=== PATIENT | female | born 1965 | race Caucasian/White ===

== ENCOUNTER 2016-04-19 00:43 | Emergency (ER) | payer MEDICARE, OTHER ==
[~2016-04-19] VITALS: Ht 160 cm; Wt 52.0 kg
[~2016-04-19 00:43] MED LIST: BACL20TA PO; DIAZ5 PO; DILAUDID PAIN PUMP; DOCU1CAP39 PO; FIORIC PO; LOVE30IN SC; PRED1TAB PO; RANI150 PO; SERT-129 PO; VESI10TA4 PO; [UNRECOGNIZED DRUG - CODE] PO
[2016-04-19 00:48] VITALS: BP 130/63; PULSE 83; RESP 18; TEMP 98.2; O2SAT 97
[2016-04-19] MEDS ORDERED: BUME2TAB PO (01:15)
[2016-04-19] MEDS ORDERED: FLUC100T2 PO (01:15)
[2016-04-19] MEDS ORDERED: PROT40TA PO (01:15)
[2016-04-19] MEDS ORDERED: OXYC-432 PO (01:15)
[2016-04-19] MEDS ORDERED: SYMB80AE INH (01:15)
[2016-04-19] MEDS ORDERED: DIAZ5TAB PO (01:15)
[2016-04-19] MEDS ORDERED: TRAZ50TA12 PO (01:15)
[2016-04-19] MEDS ORDERED: NYST0.1P (01:15)
[2016-04-19] MEDS ORDERED: ALEN1TAB48 PO (01:15)
[2016-04-19] MEDS ORDERED: MILKSUS PO (01:15)
[2016-04-19] MEDS ORDERED: BACL20TA PO (01:15)
[2016-04-19] MEDS ORDERED: SERT-129 PO (01:15)
[2016-04-19] MEDS ORDERED: PRED20 PO (01:15)
[2016-04-19] MEDS ORDERED: METH2.5T PO (01:15)
[2016-04-19] MEDS ORDERED: FIORINAL2 PO (01:15)
[2016-04-19] MEDS ORDERED: IPRAAER INH (01:15)
[2016-04-19] MEDS ORDERED: LORA-373 PO (01:15)
[2016-04-19] MEDS ORDERED: BISA1TAB2 PO (01:15)
[2016-04-19] MEDS ORDERED: HYDR2TAB PO (01:15)
[2016-04-19] MEDS ORDERED: NICO21DI2 T-DERMAL (01:15)
[2016-04-19] MEDS ORDERED: LEVO500T3 PO (01:15)
[2016-04-19] MEDS ORDERED: SULFPOW PO (01:15)
[2016-04-19] MEDS ORDERED: VESI5TAB PO (01:15)
[2016-04-19] MEDS ORDERED: FURO20TA PO (01:15)
[2016-04-19] MEDS ORDERED: [UNRECOGNIZED DRUG - OTHER] PO (01:15)
[2016-04-19] MEDS ORDERED: LIDOCAINE HCL 1% PF 30 ML VIAL INFIL ONE (01:30)
--- NOTE | 2016-04-19 02:16 | PD ---
HPI Chief Complaint: Laceration/Skin Injury Time Seen by Provider: 01:07 Travel History International Travel<30 days: No Contact w/Intl Traveler<30days: No Traveled to known affect area: No History of Present Illness HPI This is a 51-year-old female who presents to the emergency department having hit the side of her left leg on a metal pole. Pt. sustained a laceration to her left leg. Pain is moderate, constant, with no numbness or weakness. Pt. has no other injuries. PFSH Past Medical History Anemia: Yes (W BLOOD TRANSFUSION) Arthritis: Yes ( RA, OSTEOARTHRITIS, SCOLIOSIS) Depression: Yes COPD: Yes Diminished Hearing: No GERD: Yes Musculoskeletal: Yes (OSTEOMYELITIS, HX MRSA) Tetanus Vaccination: < 5 Years ?: Not Menopausal: Yes Tubal Ligation: Yes (1987) Past Surgical History Joint Replacement: Yes (BILATERAL HIP REPLACEMENT 1999, BILATERAL REDO 2003) Thoracic Surgery: Yes (C3,C4, C5, C6 FUSED 2003) Social History Alcohol Use: No Tobacco Use: Yes (OCCAS) Substance Use: Yes (MARIJUANA OCCAS) Allergies-Medications (Allergen,Severity, Reaction): Coded Allergies: Amoxicillin (Verified Allergy, Mild, 04/19/16) Morphine (Verified Adverse Reaction, Severe, 04/19/16) Reported Meds & Prescriptions Reported Meds & Active Scripts Active Reported Oxycodone-Acetaminophen 5-325 mg Tab 1 Tab PO Q6H PRN Lorazepam 0.5 Mg Tab 0.5 Mg PO Q6H PRN Fluconazole 100 Mg Tab 100 Mg PO DAILY Alendronate (Alendronate Sodium) 70 Mg Tab 70 Mg PO THURS Sertraline (Sertraline HCl) 100 Mg Tab 200 Mg PO DAILY Baclofen 20 Mg Tab 20 Mg PO TID Trazodone (Trazodone HCl) 50 Mg Tab 50 Mg PO QHS Fiorinal (Butalbital/Aspirin/Caffeine) 50-325-40 Mg Cap 1 Cap PO Q4H PRN Do not exceed 6 capsules/day. Bumetanide 2 Mg Tab 2 Mg PO DAILY [saccharaomy] 250 PO BID Hydromorphone (Hydromorphone HCl) 2 Mg Tab 2 Mg PO Q4H PRN Nyata (Nystatin (Topical)) 100,000 Unit/Gm Pow 100,000 Gm Vesicare (Solifenacin) 5 Mg Tab 5 Mg PO BID Eq Gentle Laxative (Bisacodyl) 5 Mg Tab 10 Mg PO CONSTIPATION Nicotine Patch (Nicotine) 21 Mg/24 Hr Patch 21 Mg T-DERMAL DAILY Combivent Respimat Inh (Ipratropium-Albuterol Inh) 20-100 Correction/Act Aero 1 Puff INH QID Methotrexate 2.5 Mg Tab 2.5 Mg PO WED PRN Levofloxacin 500 Mg Tab 500 Mg PO DAILY Protonix (Pantoprazole Sodium) 40 Mg Tab 40 Mg PO DAILY Sulfasalazine 1 Pow Pow 1 Tab PO DAILY Furosemide 20 Mg Tab 20 Mg PO DAILY Symbicort Inh (Budesonide/Formoterol Fumarate) 80-4.5 Mcg/Act Aero 2 Puff INH Q12HR Milk of Magnesia Liq (Magnesium Hydroxide) 400 Mg/5 Ml Susp 30 Ml PO DAILY PRN Diazepam 5 Mg Tab 5 Mg PO TID PRN Prednisone 20 Mg Tab 20 Mg PO BID Physical Exam Narrative GENERAL: Well-nourished, well-developed patient. SKIN: 6 cm curvilinear laceration along the lateral left lower extremity. HEAD: Normocephalic. EYES: No scleral icterus. No injection or drainage. NECK: Supple, trachea midline. CARDIOVASCULAR: Regular rate and rhythm without murmurs. RESPIRATORY: Breath sounds equal bilaterally. No accessory muscle use. GASTROINTESTINAL: Abdomen soft, non-tender, nondistended. MUSCULOSKELETAL: No cyanosis, or edema. Data Data Last Documented VS Vital Signs Date Time Temp Pulse Resp B/P Pulse Ox O2 Delivery O2 Flow Rate FiO2 04/19/16 00:48 98.2 83 18 130/63 97 Orders Lidocaine Pf 1% Inj (Xylocaine-Mpf 1% In (04/19/16 01:30) MDM Medical Decision Making Medical Screen Exam Complete: Yes Emergency Medical Condition: Yes Interpretation(s) Afebrile, no tachycardia, normotensive Differential Diagnosis Laceration Narrative Course This is a 51-year-old female who presents to the emergency department having sustained a laceration to her left leg. There is no underlying exposed tendon. Laceration was repaired. Patient tolerated procedure well. Procedures Procedure Narrative Laceration repaired by Adry Zepeda medical student, supervised by me. LACERATION LOCATION: Left lower extremity LENGTH: 6 cm NUMBER OF STITCHES/UVALDO: 12 REPAIR: The area of the laceration was prepped with Betadine and sterilely draped. The laceration was infiltrated with 1% lidocaine. The wound was copiously irrigated and explored without evidence of foreign body, tendon injury or neurovascular injury. The wound was closed using 12 sutures. This was a single layer repair. A sterile dressing was applied. The patient was advised to keep the dressing clean and dry. Patient tolerated the procedure well. Diagnosis Primary Impression: Laceration Patient Instructions: General Instructions Additional Instructions: If you develop fevers, redness, swelling, or discharge from your wound return to the emergency room. Keep your wound dry for 24 hours. After that time, wash gently with warm soap and water. Do not use peroxide. Do not soak in baths or go swimming. Have your sutures removed in 10-14 days. Med/Other Pt SpecificInfo: No Change to Meds Disposition: 01 DISCHARGE HOME Condition: Stable Marysol Butler MD Apr 19, 2016 02:16
== END 2016-04-19 04:22 | disposition home or self-care (01) ==
LOC: NEPE 00:43
DX: S81.812A Laceration without foreign body, left lower leg, initial encounter (principal); D64.9 Anemia, unspecified; W22.09XA Striking against other stationary object, initial encounter
CPT/HCPCS: 12002

== ENCOUNTER 2016-04-24 19:08 | Emergency (ER) | payer MEDICARE, OTHER ==
[~2016-04-24] VITALS: Ht 162.6 cm; Wt 55.0 kg
[~2016-04-24 19:08] MED LIST changes: +ALEN1TAB48 PO; +BISA1TAB2 PO; +BUME2TAB PO; -DIAZ5 PO; +DIAZ5TAB PO; -DILAUDID PAIN PUMP; -DOCU1CAP39 PO; -FIORIC PO; +FIORINAL2 PO; +FLUC100T2 PO; +FURO20TA PO; +HYDR2TAB PO; +IPRAAER INH; +LEVO500T3 PO; +LORA-373 PO; -LOVE30IN SC; +METH2.5T PO; +MILKSUS PO; +NICO21DI2 T-DERMAL; +NYST0.1P; +OXYC-432 PO; -PRED1TAB PO; +PRED20 PO; +PROT40TA PO; -RANI150 PO; +SULFPOW PO; +SYMB80AE INH; +TRAZ50TA12 PO; -VESI10TA4 PO; +VESI5TAB PO; -[UNRECOGNIZED DRUG - CODE] PO; +[UNRECOGNIZED DRUG - OTHER] PO
[2016-04-24] MEDS ORDERED: SODIUM CHLORIDE 0.9% FLUSH 5 ML FLUSH IVF PRN (19:15)
[2016-04-24 19:17] VITALS: BP 112/62; PULSE 98; RESP 16; TEMP 98.5; O2SAT 92
--- NOTE | 2016-04-24 19:17 | PD ---
HPI Chief Complaint: needs a blood transfusion Time Seen by Provider: 19:12 Travel History International Travel<30 days: No Contact w/Intl Traveler<30days: No Traveled to known affect area: No History of Present Illness HPI 51-year-old female sent in from jail stating that she needs a blood transfusion. The patient tells me that she was told that her hemoglobin is 7.1. She states she has been anemic in the past, however has not required a blood transfusion in several years. She denies melena or hematochezia. No hematemesis. She was seen in the emergency department 5 days ago for laceration to her left leg. She denies antiplatelet or anticoagulant use. She tells me that she has bronchitis and has been having a cough. No real dyspnea or chest pain. Chart review shows that she had a hemoglobin of 5.4 on 04/16/16. Patient also reports having a cough productive of yellowish sputum and states that she has bronchitis and is requesting an antibiotic for this. PFSH Past Medical History Anemia: Yes (W BLOOD TRANSFUSION) Arthritis: Yes ( RA, OSTEOARTHRITIS, SCOLIOSIS) Depression: Yes COPD: Yes Diminished Hearing: No GERD: Yes Musculoskeletal: Yes (OSTEOMYELITIS, HX MRSA) Menopausal: Yes Tubal Ligation: Yes (1987) Past Surgical History Joint Replacement: Yes (BILATERAL HIP REPLACEMENT 1999, BILATERAL REDO 2003) Thoracic Surgery: Yes (C3,C4, C5, C6 FUSED 2003) Social History Alcohol Use: No Tobacco Use: Yes (OCCAS) Substance Use: Yes (MARIJUANA OCCAS) Allergies-Medications (Allergen,Severity, Reaction): Coded Allergies: Amoxicillin (Verified Allergy, Mild, 04/19/16) Morphine (Verified Adverse Reaction, Severe, 04/19/16) Reported Meds & Prescriptions Reported Meds & Active Scripts Active Reported Polyethylene Glycol Blend (Polyethylene Glycol) 1 Oin Oin 1 Pack PO DAILY PRN Oxycodone-Acetaminophen 5-325 mg Tab 1 Tab PO Q6H PRN Lorazepam 0.5 Mg Tab 0.5 Mg PO Q6H PRN Fluconazole 100 Mg Tab 100 Mg PO DAILY Alendronate (Alendronate Sodium) 70 Mg Tab 70 Mg PO THURS Sertraline (Sertraline HCl) 100 Mg Tab 200 Mg PO DAILY Baclofen 20 Mg Tab 20 Mg PO TID Trazodone (Trazodone HCl) 50 Mg Tab 50 Mg PO QHS Fiorinal (Butalbital/Aspirin/Caffeine) 50-325-40 Mg Cap 1 Cap PO Q4H PRN Do not exceed 6 capsules/day. Bumetanide 2 Mg Tab 2 Mg PO DAILY [saccharaomy] 250 PO BID Hydromorphone (Hydromorphone HCl) 2 Mg Tab 2 Mg PO Q4H PRN Nyata (Nystatin (Topical)) 100,000 Unit/Gm Pow 100,000 Gm Vesicare (Solifenacin) 5 Mg Tab 5 Mg PO BID Eq Gentle Laxative (Bisacodyl) 5 Mg Tab 10 Mg PO CONSTIPATION Nicotine Patch (Nicotine) 21 Mg/24 Hr Patch 21 Mg T-DERMAL DAILY Combivent Respimat Inh (Ipratropium-Albuterol Inh) 20-100 Care Home/Act Aero 1 Puff INH QID Methotrexate 2.5 Mg Tab 2.5 Mg PO WED PRN Levofloxacin 500 Mg Tab 500 Mg PO DAILY Protonix (Pantoprazole Sodium) 40 Mg Tab 40 Mg PO DAILY Sulfasalazine 1 Pow Pow 1 Tab PO DAILY Furosemide 20 Mg Tab 20 Mg PO DAILY Symbicort Inh (Budesonide/Formoterol Fumarate) 80-4.5 Mcg/Act Aero 2 Puff INH Q12HR Milk of Magnesia Liq (Magnesium Hydroxide) 400 Mg/5 Ml Susp 30 Ml PO DAILY PRN Diazepam 5 Mg Tab 5 Mg PO TID PRN Prednisone 20 Mg Tab 20 Mg PO BID Review of Systems Except as stated in HPI: all other systems reviewed are Neg Physical Exam Narrative GENERAL: Well-developed, well-nourished, comfortable, no acute distress. SKIN: Warm and dry. No pallor. Left leg wound with sutures in place without warmth, without erythema, without purulent drainage. HEAD: Atraumatic. Normocephalic. EYES: Pupils equal and round. No scleral icterus. No injection or drainage. ENT: Mucous membranes pink and moist. NECK: Trachea midline. No JVD. CARDIOVASCULAR: Regular rate and rhythm. No murmur appreciated. RESPIRATORY: No accessory muscle use. Clear to auscultation. Breath sounds equal bilaterally. GASTROINTESTINAL: Abdomen soft, non-tender, nondistended. RECTUM: No masses, no fissures, no hemorrhoids, heme-negative brown stool. MUSCULOSKELETAL: Splint on right lower extremity from thigh to ankle which patient states is for a fractured right femur. No clubbing. No cyanosis. No edema. NEUROLOGICAL: Awake and alert. No obvious cranial nerve deficits. Motor grossly within normal limits. Normal speech. PSYCHIATRIC: Appropriate mood and affect; insight and judgment normal. Data Data Last Documented VS Vital Signs Date Time Temp Pulse Resp B/P Pulse Ox O2 Delivery O2 Flow Rate FiO2 04/24/16:17 98.5 98 16 112/62 92 Orders Complete Blood Count With Diff (04/24/16 19:) Comprehensive Metabolic Panel (04/24/16 19:) Prothrombin Time / Inr (Pt) (04/24/16 19:) Act Partial Throm Time (Ptt) (04/24/16 19:) Iv Access Insert/Monitor (04/24/16:) Ecg Monitoring (04/24/16:) Oximetry (04/24/16:) Sodium Chloride 0.9% Flush (Ns Flush) (04/24/16:) Type And Screen (04/24/16 19:) Red Blood Cells (Rbc) (04/24/16 20:32) Blood Product Administration .UPON TRANSFUSION (04/24/16 20:32) Oxycodone-Acetamin 5-325 Mg (Percocet (04/24/16 20:45) Levofloxacin (Levaquin) (04/25/16 09:00) Labs Laboratory Tests Test 04/24/16 19:25 White Blood Count 5.4 TH/MM3 Red Blood Count 3.05 MIL/MM3 Hemoglobin 7.6 GM/DL Hematocrit 24.6 % Mean Corpuscular Volume 80.7 FL Mean Corpuscular Hemoglobin 25.1 PG Mean Corpuscular Hemoglobin 31.0 % Concent Red Cell Distribution Width 18.1 % Platelet Count 236 TH/MM3 Mean Platelet Volume 8.9 FL Neutrophils (%) (Auto) 69.0 % Lymphocytes (%) (Auto) 19.1 % Monocytes (%) (Auto) 9.1 % Eosinophils (%) (Auto) 2.4 % Basophils (%) (Auto) 0.4 % Neutrophils # (Auto) 3.7 TH/MM3 Lymphocytes # (Auto) 1.0 TH/MM3 Monocytes # (Auto) 0.5 TH/MM3 Eosinophils # (Auto) 0.1 TH/MM3 Basophils # (Auto) 0.0 TH/MM3 CBC Comment AUTO DIFF Prothrombin Time 9.8 SEC Prothromb Time International 0.9 RATIO Ratio Activated Partial 23.4 SEC Thromboplast Time Sodium Level 138 MEQ/L Potassium Level 3.9 MEQ/L Chloride Level 102 MEQ/L Carbon Dioxide Level 28.2 MEQ/L Anion Gap 8 MEQ/L Blood Urea Nitrogen 21 MG/DL Creatinine 0.88 MG/DL Estimat Glomerular Filtration 68 ML/MIN Rate Random Glucose 94 MG/DL Calcium Level 8.1 MG/DL Total Bilirubin 0.2 MG/DL Aspartate Amino Transf 17 U/L (AST/SGOT) Alanine Aminotransferase 17 U/L (ALT/SGPT) Alkaline Phosphatase 134 U/L Total Protein 6.4 GM/DL Albumin 2.8 GM/DL [facility] Medical Decision Making Medical Screen Exam Complete: Yes Emergency Medical Condition: Yes Medical Record Reviewed: Yes Differential Diagnosis Anemia, bronchitis, pneumonia Narrative Course Initial vital signs show heart rate 98, blood pressure 112/62, pulse ox 92% on room air, oral temp of 98.5F. CBC shows to be BC 5.4, hematocrit 7.6, hematocrit 24.6, platelets 236. CMP is unremarkable. Stool is heme-negative and brown. Case discussed with the patient's primary care physician at [facility] jail Dr. Mirza who recommends transfusing her 1 unit of PRBCs and discharging her back to the jail. Patient is agreeable with this plan as she had told me when she came here that she does not wish to be admitted. Patient also has a cough productive of yellowish sputum, stating that she thinks she has bronchitis. She is requesting to be started on an antibiotic for this, so I will start her on Levaquin. HemaPrompt Point of Care Internal Pos. & Neg. Controls: Passed Fecal Specimen Occult Blood: Negative Comment Heme negative brown stool Diagnosis Primary Impression: Anemia Qualified Code: D64.9 - Anemia, unspecified type Additional Impression: Bronchitis Referrals: Primary Care Physician 1 day Additional Instructions: Follow-up with your primary care physician Dr. Hidalgo in the next 1-2 days. Return to the emergency department for worsening symptoms or any other concerns. Scripts Levofloxacin (Levaquin)500 Mg [id number] Mg PO DAILY 5 Days Ref 0 Prov:Michael Landrum MD 04/24/16 Disposition: DISCHARGE HOME Condition: Stable Michael Landrum MD Apr 24, 2016 19:17
[2016-04-24 19:52] LABS: APTT (PATIENT) 23.4 SEC (24.3-30.1); INTERNATIONAL NORMALIZED RATIO 0.9 RATIO; PROTHROMBIN TIME - PATIENT 9.8 SEC (9.8-11.6)
[2016-04-24 19:54] LABS: AUTOMATED NEUTROPHIL # 3.7 TH/MM3 (1.8-7.7); BASOPHIL % 0.4 % (0.0-2.0); EOSINOPHIL # 0.1 TH/MM3 (0-0.4); EOSINOPHIL % 2.4 % (0.0-4.0); HEMATOCRIT 24.6 % (35.0-46.0); LYMPH % 19.1 % (9.0-44.0); MEAN CELL VOLUME 80.7 FL (80.0-100.0); MEAN CORPUSCULAR HEMOGLOBIN 25.1 PG (27.0-34.0); MONO % 9.1 % (0.0-8.0); PLATELET COUNT 236 TH/MM3 (150-450); RED BLOOD COUNT 3.05 MIL/MM3 (4.00-5.30); RED CELL DISTRIBUTION WIDTH 18.1 % (11.6-17.2); WHITE BLOOD COUNT 5.4 TH/MM3 (4.0-11.0)
[2016-04-24 20:05] LABS: HEMO FLAGS AUTO DIFF
[2016-04-24 20:20] LABS: ANION GAP 8 MEQ/L (5-15); AST (GOT) 17 U/L (15-37); BICARBONATE 28.2 MEQ/L (21.0-32.0); BLOOD UREA NITROGEN 21 MG/DL (7-18); CHLORIDE 102 MEQ/L (98-107); GLOMERULAR FILTRATION RATE 68 ML/MIN (>89); POTASSIUM 3.9 MEQ/L (3.5-5.1); SODIUM (NA) 138 MEQ/L (136-145)
[2016-04-24 20:23] LABS: ALKALINE PHOSPHATASE 134 U/L (45-117); ALT (GPT) 17 U/L (10-53); TOTAL BILIRUBIN ADULT 0.2 MG/DL (0.2-1.0)
[2016-04-24] MEDS ORDERED: [UNRECOGNIZED DRUG - CODE] PO (20:29)
[2016-04-24] MEDS ORDERED: LEVA500T PO (20:36)
[2016-04-24 20:42] LABS: BASOPHILS 1 % (0-2); EOSINOPHILS 3 % (0-4); POLYS (SEG NEUTROPHILS) 73 % (16-70); PROMYELOCYTES 1 % (0-0); WBC DIFF SAMPLE 100
[2016-04-24 20:43] LABS: OVALOCYTES 1+ (NORMAL); PLATELET ESTIMATE SMEAR NORMAL (NORMAL); PLATELET MORPHOLOGY NORMAL (NORMAL); SCAN/DIFF FINAL DIFF MANUAL
[2016-04-24] MEDS ORDERED: oxyCODONE/ACETAMINOPHEN 5 MG/325 MG TAB PO ONE (20:45)
[2016-04-24] MEDS ORDERED: LEVOFLOXACIN 500 MG TAB PO ONE (21:00)
[2016-04-24 22:10] VITALS: BP 105/68; PULSE 86; RESP 16; TEMP 99.3; O2SAT 96
[2016-04-24 22:19] VITALS: BP 100/72; PULSE 84; RESP 16; TEMP 99.1; O2SAT 95
[2016-04-24 23:39] VITALS: BP 108/77
[2016-04-25] MEDS ORDERED: LEVOFLOXACIN 500 MG TAB PO SCH (09:00)
== END 2016-04-24 23:55 | disposition home or self-care (01) ==
LOC: NEPB 19:08
DX: D64.9 Anemia, unspecified (principal); J40 Bronchitis, not specified as acute or chronic; J44.9 Chronic obstructive pulmonary disease, unspecified; F12.90 Cannabis use, unspecified, uncomplicated; Z72.0 Tobacco use; Z88.5 Allergy status to narcotic agent; Z88.1 Allergy status to other antibiotic agents
CPT/HCPCS: 36430; 80053; 85007; 85027; 85610; 85730; 86850; 86900; 86901; 86920; 99283; P9016

== ENCOUNTER 2016-06-12 17:38 | Emergency (ER) | payer MEDICARE, OTHER ==
[~2016-06-12 17:38] MED LIST changes: +LEVA500T PO; +[UNRECOGNIZED DRUG - CODE] PO
[2016-06-12 18:00] VITALS: BP 135/76; PULSE 82; RESP 16; TEMP 96.6; O2SAT 93
[2016-06-12 19:51] VITALS: BP 127/78; PULSE 80; RESP 20; O2SAT 94
[2016-06-12 20:00] LABS: AUTOMATED NEUTROPHIL # 3.1 TH/MM3 (1.8-7.7); BASOPHIL % 0.9 % (0.0-2.0); EOSINOPHIL # 0.1 TH/MM3 (0-0.4); EOSINOPHIL % 1.9 % (0.0-4.0); HEMATOCRIT 36.3 % (35.0-46.0); HEMO FLAGS DIFF FINAL; LYMPH % 29.8 % (9.0-44.0); LYMPHOCYTE # 1.6 TH/MM3 (1.0-4.8); MEAN CELL VOLUME 80.4 FL (80.0-100.0); MEAN CORPUSCULAR HEMOGLOBIN 25.3 PG (27.0-34.0); MEAN CORPUSCULAR HGB CONC 31.5 % (32.0-36.0); MONO % 7.5 % (0.0-8.0); NEUT % 59.9 % (16.0-70.0); PLATELET COUNT 103 TH/MM3 (150-450); RED BLOOD COUNT 4.51 MIL/MM3 (4.00-5.30); RED CELL DISTRIBUTION WIDTH 21.2 % (11.6-17.2); WHITE BLOOD COUNT 5.2 TH/MM3 (4.0-11.0)
--- NOTE | 2016-06-12 20:01 | PD ---
HPI Chief Complaint: Medical Clearance Time Seen by Provider: 19:56 Travel History International Travel<30 days: No Contact w/Intl Traveler<30days: No Traveled to known affect area: No History of Present Illness HPI The patient is a 51-year-old female who presents to the emergency department via EMS from [facility] for CT pulmonary angiogram. The patient states she has a history of rheumatoid arthritis, has chronic pain is on steroids and a pain pump that is located within the abdomen. The patient broke her right femur in April, was seen by her orthopedist, Dr. Horton, who recommended the patient wear brace, no surgery was performed. The patient was at rehabilitation, was discharged home, and fell within one days duration. Therefore, she has been staying at [facility] of the last several months. The patient states she's had a "raspy voice ", over the last several weeks and was referred to see her diesel service apprentice, Dr. Conde. The patient was seen by her diesel service apprentice and it was recommended that she come to the emergency department to have a CT pulmonary angiogram to rule out PE. The patient denies any current chest pain or shortness of breath, however, does note intermittent history of shortness of breath secondary to COPD. The patient stopped smoking in February and has been off of oxygen for several months. The patient denies any fever, chills, sweats, nausea, vomiting, or abdominal pain. PFSH Past Medical History Anemia: Yes (W BLOOD TRANSFUSION) Arthritis: Yes ( RA, OSTEOARTHRITIS, SCOLIOSIS) Depression: Yes COPD: Yes Diminished Hearing: No GERD: Yes Musculoskeletal: Yes (OSTEOMYELITIS, HX MRSA) ?: Not Menopausal: Yes Tubal Ligation: Yes (1987) Past Surgical History Joint Replacement: Yes (BILATERAL HIP REPLACEMENT 1999, BILATERAL REDO 2003) Thoracic Surgery: Yes (C3,C4, C5, C6 FUSED 2003) Social History Alcohol Use: No Tobacco Use: No (QUIT 02-09-16) Substance Use: Yes (MARIJUANA OCCAS) Allergies-Medications (Allergen,Severity, Reaction): Coded Allergies: Amoxicillin (Verified Allergy, Mild, 06/12/16) Morphine (Verified Adverse Reaction, Severe, 06/12/16) Reported Meds & Prescriptions Reported Meds & Active Scripts Active Levaquin (Levofloxacin) 500 Mg Tab 500 Mg PO DAILY 5 Days Reported Oxycodone-Acetaminophen 5-325 mg Tab 1 Tab PO Q6H PRN Lorazepam 0.5 Mg Tab 0.5 Mg PO Q6H PRN Fluconazole 100 Mg Tab 100 Mg PO DAILY Alendronate (Alendronate Sodium) 70 Mg Tab 70 Mg PO THURS Sertraline (Sertraline HCl) 100 Mg Tab 200 Mg PO DAILY Baclofen 20 Mg Tab 20 Mg PO TID Trazodone (Trazodone HCl) 50 Mg Tab 50 Mg PO QHS Fiorinal (Butalbital/Aspirin/Caffeine) 50-325-40 Mg Cap 1 Cap PO Q4H PRN Do not exceed 6 capsules/day. Bumetanide 2 Mg Tab 2 Mg PO DAILY Vesicare (Solifenacin) 5 Mg Tab 5 Mg PO BID Eq Gentle Laxative (Bisacodyl) 5 Mg Tab 10 Mg PO CONSTIPATION Nicotine Patch (Nicotine) 21 Mg/24 Hr Patch 21 Mg T-DERMAL DAILY Combivent Respimat Inh (Ipratropium-Albuterol Inh) 20-100 Custodial/Act Aero 1 Puff INH QID Methotrexate 2.5 Mg Tab 2.5 Mg PO WED PRN Levofloxacin 500 Mg Tab 500 Mg PO DAILY Protonix (Pantoprazole Sodium) 40 Mg Tab 40 Mg PO DAILY Sulfasalazine 1 Pow Pow 1 Tab PO DAILY Furosemide 20 Mg Tab 20 Mg PO DAILY Symbicort Inh (Budesonide/Formoterol Fumarate) 80-4.5 Mcg/Act Aero 2 Puff INH Q12HR Milk of Magnesia Liq (Magnesium Hydroxide) 400 Mg/5 Ml Susp 30 Ml PO DAILY PRN Diazepam 5 Mg Tab 5 Mg PO TID PRN Prednisone 20 Mg Tab 20 Mg PO BID Review of Systems Except as stated in HPI: all other systems reviewed are Neg General / Constitutional: No: Fever HENT: Positive: Sore Throat Cardiovascular: No: Chest Pain or Discomfort Respiratory: No: Shortness of Breath Gastrointestinal: No: Nausea, Vomiting, Abdominal Pain Musculoskeletal: Positive: Pain Neurologic: No: Dizziness Physical Exam Narrative GENERAL: Awake, alert, pleasant 51-year-old female who appears her stated age and is in no acute respiratory distress. SKIN: Focused skin assessment warm/dry. HEAD: Atraumatic. Normocephalic. EYES: Pupils equal and round. No injection or drainage. ENT: No nasal bleeding or discharge. Mucous membranes pink and moist. NECK: Trachea midline. No JVD. CARDIOVASCULAR: Regular rate and rhythm. No murmur appreciated. RESPIRATORY: No accessory muscle use. Prolonged expiratory phase. GASTROINTESTINAL: Abdomen soft, no rebound tenderness. Pain pump in place right lower abdomen. MUSCULOSKELETAL: Right lower extremity is flexed at the hip and knee, unable to extend at the knee completely. NEUROLOGICAL: Awake and alert. No obvious cranial nerve deficits. Motor grossly within normal limits. Normal speech. PSYCHIATRIC: Appropriate mood and affect; insight and judgment normal. Data Data Last Documented VS Vital Signs Date Time Temp Pulse Resp B/P Pulse Ox O2 Delivery O2 Flow Rate FiO2 06/12/16 19:51 80 20 127/78 94 Room Air 06/12/16 18:00 96.6 Orders Complete Blood Count With Diff (06/12/16 19:25) Comprehensive Metabolic Panel (06/12/16 19:25) Act Partial Throm Time (Ptt) (06/12/16 19:25) Prothrombin Time / Inr (Pt) (06/12/16 19:25) Ct Pulmonary Angiogram (06/12/16 19:25) Labs Laboratory Tests Test 06/12/16 19:42 White Blood Count 5.2 TH/MM3 Red Blood Count 4.51 MIL/MM3 Hemoglobin 11.4 GM/DL Hematocrit 36.3 % Mean Corpuscular Volume 80.4 FL Mean Corpuscular Hemoglobin 25.3 PG Mean Corpuscular Hemoglobin 31.5 % Concent Red Cell Distribution Width 21.2 % Platelet Count 103 TH/MM3 Mean Platelet Volume 9.6 FL Neutrophils (%) (Auto) 59.9 % Lymphocytes (%) (Auto) 29.8 % Monocytes (%) (Auto) 7.5 % Eosinophils (%) (Auto) 1.9 % Basophils (%) (Auto) 0.9 % Neutrophils # (Auto) 3.1 TH/MM3 Lymphocytes # (Auto) 1.6 TH/MM3 Monocytes # (Auto) 0.4 TH/MM3 Eosinophils # (Auto) 0.1 TH/MM3 Basophils # (Auto) 0.0 TH/MM3 CBC Comment DIFF FINAL Differential Comment Prothrombin Time 10.7 SEC Prothromb Time International 1.0 RATIO Ratio Activated Partial 28.2 SEC Thromboplast Time Sodium Level 139 MEQ/L Potassium Level 4.0 MEQ/L Chloride Level 101 MEQ/L Carbon Dioxide Level 32.2 MEQ/L Anion Gap 6 MEQ/L Blood Urea Nitrogen 25 MG/DL Creatinine 0.61 MG/DL Estimat Glomerular Filtration 103 ML/MIN Rate Random Glucose 90 MG/DL Calcium Level 8.6 MG/DL Total Bilirubin 0.3 MG/DL Aspartate Amino Transf 16 U/L (AST/SGOT) Alanine Aminotransferase 14 U/L (ALT/SGPT) Alkaline Phosphatase 158 U/L Total Protein 6.1 GM/DL Albumin 3.1 GM/DL [facility] Medical Decision Making Medical Screen Exam Complete: Yes Emergency Medical Condition: Yes Medical Record Reviewed: Yes Interpretation(s) EKG reveals normal sinus rhythm at a rate of 77. Deep S wave in V2. Laboratory Tests Test 06/12/16 19:42 White Blood Count 5.2 TH/MM3 Red Blood Count 4.51 MIL/MM3 Hemoglobin 11.4 GM/DL Hematocrit 36.3 % Mean Corpuscular Volume 80.4 FL Mean Corpuscular Hemoglobin 25.3 PG Mean Corpuscular Hemoglobin 31.5 % Concent Red Cell Distribution Width 21.2 % Platelet Count 103 TH/MM3 Mean Platelet Volume 9.6 FL Neutrophils (%) (Auto) 59.9 % Lymphocytes (%) (Auto) 29.8 % Monocytes (%) (Auto) 7.5 % Eosinophils (%) (Auto) 1.9 % Basophils (%) (Auto) 0.9 % Neutrophils # (Auto) 3.1 TH/MM3 Lymphocytes # (Auto) 1.6 TH/MM3 Monocytes # (Auto) 0.4 TH/MM3 Eosinophils # (Auto) 0.1 TH/MM3 Basophils # (Auto) 0.0 TH/MM3 CBC Comment DIFF FINAL Differential Comment Prothrombin Time 10.7 SEC Prothromb Time International 1.0 RATIO Ratio Activated Partial 28.2 SEC Thromboplast Time Sodium Level 139 MEQ/L Potassium Level 4.0 MEQ/L Chloride Level 101 MEQ/L Carbon Dioxide Level 32.2 MEQ/L Anion Gap 6 MEQ/L Blood Urea Nitrogen 25 MG/DL Creatinine 0.61 MG/DL Estimat Glomerular Filtration 103 ML/MIN Rate Random Glucose 90 MG/DL Calcium Level 8.6 MG/DL Total Bilirubin 0.3 MG/DL Aspartate Amino Transf 16 U/L (AST/SGOT) Alanine Aminotransferase 14 U/L (ALT/SGPT) Alkaline Phosphatase 158 U/L Total Protein 6.1 GM/DL Albumin 3.1 GM/DL Last Impressions CT Angiography 06/12/161924 Signed Impressions: Service Date/Time: Sunday, June 12, 2016 21:35 - CONCLUSION: 1. Negative for pulmonary embolus. Dependent atelectasis in the lungs. Mild emphysema. Kin Bhatia MD Differential Diagnosis Differential diagnosis includes URI, viral syndrome, CHF, COPD, pneumonia, bronchitis, pulmonary embolism. Narrative Course IV was established, labs were drawn and sent, and the patient was placed on cardiac telemetry monitoring and continuous pulse oximetry monitoring. EKG was ordered and interpreted. CT pulmonary angiogram was ordered per the patient's diesel service apprentice recommendations. Patient's laboratory evaluation is unremarkable. CT pulmonary angiogram is unremarkable. The patient be discharged back to detention, she is stable for outpatient follow-up. Diagnosis Primary Impression: URI (upper respiratory infection) Qualified Code: J06.9 - Upper respiratory tract infection, unspecified type Patient Instructions: General Instructions Additional Instructions: Follow-up with her primary physician and diesel service apprentice. Please provide the patient a copy of her labs and CT results at discharge. Return if symptoms worsen or progress. Med/Other Pt SpecificInfo: No Change to Meds Disposition: 01 DISCHARGE HOME Condition: Stable Maximus Parham MD Jun 12, 2016 20:01
[2016-06-12 20:21] LABS: ANION GAP 6 MEQ/L (5-15); APTT (PATIENT) 28.2 SEC (24.3-30.1); AST (GOT) 16 U/L (15-37); BICARBONATE 32.2 MEQ/L (21.0-32.0); BLOOD UREA NITROGEN 25 MG/DL (7-18); CHLORIDE 101 MEQ/L (98-107); GLOMERULAR FILTRATION RATE 103 ML/MIN (>89); PROTHROMBIN TIME - PATIENT 10.7 SEC (9.8-11.6); SODIUM (NA) 139 MEQ/L (136-145)
[2016-06-12 20:26] LABS: ALKALINE PHOSPHATASE 158 U/L (45-117); ALT (GPT) 14 U/L (10-53); TOTAL BILIRUBIN ADULT 0.3 MG/DL (0.2-1.0)
[2016-06-12] MEDS ORDERED: IOHEXOL 350 MG/ML 10 ML VIAL (for RAD DIAG) IV ONE (21:35)
--- NOTE | 2016-06-12 22:13 | RADRPT ---
EXAM DATE/TIME: 06/12/2016 21:35 [facility] COMPARISON: No previous studies available for comparison. INDICATIONS : Fever along with raspy voice, evaluate for pulmonary embolism IV CONTRAST: 64 cc Omnipaque 350 (iohexol) IV RADIATION DOSE: 23.24 CTDIvol (mGy) MEDICAL HISTORY : Chronic obstructive pulmonary disease. Gastroesophageal reflux disease. SURGICAL HISTORY : Tubal ligation. ENCOUNTER: Initial ACUITY: 2 days PAIN SCALE: 4/10 LOCATION: chest TECHNIQUE: Volumetric scanning of the chest was performed using a pulmonary embolism protocol MIP images were re constructed. Using automated exposure control and adjustment of the mA and/or kV according to patien t size, radiation dose was kept as low as reasonably achievable to obtain optimal diagnostic quality images. FINDINGS: No filling defects to suggest pulmonary embolism. Mild emphysema. Dependent atelectasis in the lungs. There is no pleural or significant pericardial effusion. Small hiatal hernia. No hilar, mediastinal axillary adenopathy. No acute bony abnormalities. CONCLUSION: 1. Negative for pulmonary embolus. Dependent atelectasis in the lungs. Mild emphysema. Kin Bhatia MD on June 12, 2016 at 22:08 Board Certified Radiologist. This report was verified electronically.
--- NOTE | 2016-06-13 12:56 | EKG ---
Date Performed: 06/12/2016 Time Performed: 19:59:49 PTAGE: 51 years EKG: Sinus rhythm BORDERLINE LEFT AXIS DEVIATION MODERATE VOLTAGE CRITERIA FOR LVH, CONSIDER NORMAL VARIANT BORDERLINE ECG NO PREVIOUS TRACING DOCTOR: Parth Rudd Interpretating Date/Time 06/13/2016 12:54:17
== END 2016-06-13 00:28 ==
LOC: NEPD 17:38
DX: J06.9 Acute upper respiratory infection, unspecified (principal); J44.9 Chronic obstructive pulmonary disease, unspecified; R50.9 Fever, unspecified; K21.9 Gastro-esophageal reflux disease without esophagitis; M06.9 Rheumatoid arthritis, unspecified; Z87.891 Personal history of nicotine dependence
CPT/HCPCS: 71275; 80053; 85025; 85610; 85730; 93005; 99284; Q9967

== ENCOUNTER → 2016-11-28 | Outpatient (CLI) | payer MEDICARE, OTHER ==
[~2016-11-28] VITALS: Ht 162.6 cm; Wt 52.0 kg
[~2016-11-28] MED LIST changes: +*HYDROmorphone PF 1 MG VIAL PERIprocedural Use ONLY ONE; +*ONDANSETRON 4 MG VIAL PERIprocedural Use ONLY ONE; +CHLORHEXIDINE GLUCONATE 2 % 1 PACK (2 CLOTHS) TOPICAL PRN; +GLYCOPYRROLATE 0.2 MG/ML VIAL IV ONE; +GLYCOPYRROLATE 1 MG/5 ML SYRINGE IV PUSH ONE; -HYDR2TAB PO; +INSULIN HUMAN REGULAR 1,000 UNITS/10 ML VIAL SQ PRN; +IOHEXOL 350 MG/ML 50 ML BTL (for RAD DIAG) OTHER ONE; +LACTATED RINGER'S 1000 ML INJ 1,000 ML IV ONE; +LIDOCAINE HCL 1% PF 5 ML AMPULE OTHER ONE; +METOPROLOL TARTRATE 25 MG TAB PO PRN; +NEOSTIGMINE 3 MG/3 ML SYR IV ONE; -NYST0.1P; +POVIDONE IODINE 5% (ANTISEPSIS KIT) 4 APPLICATIONS EACH NARE PRN; +PROPOFOL 200 MG/20 ML AMP IV ONE; +ROCURONIUM INJ 50 MG/5 ML SYRINGE IV PUSH ONE; +SODIUM CHLORID 0.9% 500 ML IV PRN; -[UNRECOGNIZED DRUG - CODE] PO; -[UNRECOGNIZED DRUG - OTHER] PO
[2016-11-28] MEDS: LACTATED RINGER'S 1000 ML IV PRN ×2 (10:30→13:00)
--- NOTE | 2016-11-28 14:13 | PD.PROCEDR ---
GI Procedure PROCEDURE PERFORMED EGD with biopsy followed by an ERCP with sphincterotomy and balloon extraction INDICATION FOR PROCEDURE Dysphagia, dilated common bile duct PROCEDURE: The procedure, risks and benefits were discussed with Ms. Ruiz and informed consent was obtained. Anesthesia sedated her with Diprivan. She was placed in the left lateral decubitus position. EGD: The Pentax videoscope was introduced through the oropharynx and advanced to the second portion of the duodenum under direct visualization. Retroflexion was performed in the stomach. FINDINGS: The esophagus there was severe grade D ulcerated reflux esophagitis this was biopsied Stomach the gastric mucosa appeared to be erythemic in a patchy fashion all the way through antral biopsies were taken for further evaluation The duodenum this was normal ERCP: Patient was placed in a prone position. The Pentax videoscope was introduced through the oropharynx and advanced to the second portion of the duodenum where the ampula was identified. FINDINGS: The ampulla was identified this appeared to be unremarkable we were able to obtain easy cannulation of the common bile duct which appeared to be mildly dilated but otherwise smooth with a tapering into the ampulla and the intrahepatics were normal there was a suspicion of a filling defect and so a sphincterotomy was performed and using the 12 mm balloon the bile duct was swept and an obstructive cholangiogram was performed and no stones were noted and the common bile duct and intrahepatics were basically unremarkable except for mild dilation of the CBD and after this the procedure was terminated ESTIMATED BLOOD LOSS: None SPECIMENS REMOVED: Esophageal and gastric biopsies COMPLICATIONS: None IMPRESSION: Severe grade D erosive reflux esophagitis Pangastritis Dilated common bile duct PLAN: Await biopsy Recommend pantoprazole 40 mg twice daily EGD in 2 months Follow up in 3-4 weeks CBC with CMP prior office visit Reflux precautions Maikol Tanner MD Nov 28, 2016 14:13
--- NOTE | 2016-11-28 14:19 | RADRPT ---
EXAM DATE/TIME: 11/28/2016 13:10 [facility] COMPARISON: No previous studies available for comparison. INDICATIONS : Obstruction, sphincterotomy, and balloon sweep. FLUORO TIME: 3.25 minutes IMAGE COUNT: 3 CONTRAST: Instilled by Ordering Physician MEDICAL HISTORY : Chronic obstructive pulmonary disease. Gastroesophageal reflux disease. SURGICAL HISTORY : Tubal ligation. ENCOUNTER: Initial ACUITY: 1 day PAIN SCORE: Non-responsive. LOCATION: Right upper quadrant FINDINGS: An ERCP was performed by the ordering physician. The images demonstrate cannulation of the common bile duct with balloon sweep. No complications ident ified. No abnormal filling defects are seen. CONCLUSION: ERCP as above. Kin Bhatia MD on November 28, 2016 at 14:17 Board Certified Radiologist. This report was verified electronically.
[2016-11-28 15:25] VITALS: BP 106/76; PULSE 99; RESP 20; TEMP 98.6; O2SAT 97
== END ==
LOC: HSDC 09:47
PROVIDERS: ATTEND Internal Medicine Gastroenterology
DX: K83.8 Other specified diseases of biliary tract (principal); K21.0 Gastro-esophageal reflux disease with esophagitis; K29.70 Gastritis, unspecified, without bleeding; R13.10 Dysphagia, unspecified
CPT/HCPCS: 00740; 43239; 43262; 74330; 88305; 88312; C1769; J1170; J2405; J2710; J7120; Q9967